=== PATIENT | female | born 1980 | race American Indian/Alaskan Native ===

== ENCOUNTER 2017-05-18 14:05 | Emergency (ER) | payer MEDICAID ==
[2017-05-18 14:09] VITALS: BP 139/93
== END 2017-05-18 16:00 | disposition left against medical advice (07) ==
LOC: ED 14:05
DX: M79.642 Pain in left hand (principal); Z53.21 Procedure and treatment not carried out due to patient leaving prior to being seen by health care provider

== ENCOUNTER 2017-05-22 20:12 | Emergency (ER) | payer MEDICAID ==
--- NOTE | 2017-05-22 21:31 | Emergency Department Report ---
ED General Adult HPI - General Chief complaint: Extremity Injury, Upper Stated complaint: LAC TO FINGERS FROM KNIFE Time Seen by Provider: 05/22/17 21:24 Source: patient Mode of arrival: Stretcher Limitations: No Limitations - History of Present Illness Initial comments: Patient is a 37-year-old female that presents to the ER with complaints of lacerations to her third, fourth, and fifth digit on her left hand. She states that she cut her hand/fingers 4 days ago and patient has been trying to take care of them at home. Patient states over the last 3 days they have becoming increasingly worse with pain, increasing warmth and redness, and even a smelly discharge. Patient states that she was able to feel her fingertips after she cut her hand but as of today patient has not been able to feel her fingertips at all. Patient complains of fever and chills. Patient denies nausea, vomiting , pain, shortness of breath, abdominal pain and headache. -: Gradual, days(s) (4 days) Location: upper extremity Radiation: other (pain radiating up hand) Severity scale (0 -10): 9 Quality: stabbing Consistency: constant Improves with: rest Worsens with: movement Associated Symptoms: fever/chills Treatments Prior to Arrival: none - Related Data Home Medications Medication Instructions Recorded Confirmed Last Taken Levothyroxine [Synthroid] 125 mcg PO QDAY 06/30/13 10/31/15 06/09/14 Duloxetine HCl [Cymbalta] 20 mg PO QDAY 10/31/15 10/31/15 Unknown Esomeprazole Magnesium [NexIUM] 40 mg PO QDAY 10/31/15 10/31/15 Unknown Levothyroxine [Synthroid] 88 mcg PO QAM 03/14/16 03/14/16 Unknown hydrOXYzine HCL [Atarax] 50 mg PO BID 03/14/16 03/14/16 Unknown Previous Rx's Medication Instructions Recorded Last Taken Type Citalopram Hydrobromide [celeXA] 20 mg PO DAILY #30 tablet 03/14/16 Unknown Rx Famotidine [Pepcid] 20 mg PO BID #30 tablet 03/14/16 Unknown Rx HYDROcodone/APAP 5-325 [[place] 1 each PO Q6HR PRN #12 tablet 03/14/16 Unknown Rx 5/325] Mirtazapine [Remeron] 45 mg PO QHS #30 tablet 03/14/16 Unknown Rx Promethazine [Phenergan TAB] 25 mg PO Q6HR PRN #30 tab 03/14/16 Unknown Rx Ibuprofen [Motrin 800 MG tab] 800 mg PO Q8HR PRN #30 tablet 03/20/16 Unknown Rx Citalopram [celeXA] 20 mg PO QDAY #30 tablet 05/11/16 Unknown Rx Famotidine [Pepcid] 20 mg PO BID #60 tablet 05/11/16 Unknown Rx HYDROcodone/APAP 5-325 [[place] 1 each PO Q6HR PRN #10 tablet 05/11/16 Unknown Rx 5-325 mg TAB] Mirtazapine [Remeron] 45 mg PO QHS #30 tablet 05/11/16 Unknown Rx Nitrofurantoin [place]/M-Cryst 100 mg PO Q12HR #10 capsule 05/11/16 Unknown Rx [Macrobid CAP] Promethazine [Phenergan TAB] 25 mg PO Q6HR PRN #30 tab 05/11/16 Unknown Rx Ibuprofen [Motrin 600 MG tab] 600 mg PO Q8H PRN #30 tablet 04/30/17 Unknown Rx predniSONE [Deltasone] 40 mg PO QDAY #5 tab 04/30/17 Unknown Rx Allergies Allergy/AdvReac Type Severity Reaction Status Date / Time No Known Allergies Allergy Verified 05/22/17 20:25 ED Review of Systems ROS: Stated complaint: LAC TO FINGERS FROM KNIFE Other details as noted in HPI Comment: All other systems reviewed and negative Constitutional: see HPI, chills Eyes: as per HPI ENT: as per HPI Respiratory: no symptoms reported Cardiovascular: as per HPI Endocrine: no symptoms reported Gastrointestinal: as per HPI Genitourinary: as per HPI Musculoskeletal: as per HPI Skin: as per HPI Neurological: as per HPI Psychiatric: as per HPI Hematological/Lymphatic: as per HPI ED Past Medical Hx - Past Medical History Previous Medical History?: Yes Hx Hypertension: No Hx Heart Attack/AMI: No Hx Congestive Heart Failure: No Hx Diabetes: No Hx Deep Vein Thrombosis: No Hx GERD: Yes Hx Liver Disease: No Hx Renal Disease: No Hx Sickle Cell Disease: No 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 ) Hx Psychiatric Treatment: Yes (Bipolar, PTSD) Hx Asthma: No Hx COPD: No Hx HIV: No Additional medical history: Hypothyroid - Surgical History Past Surgical History?: Yes Additional Surgical History: Perirectal abscess removed in 2004, tubal ligation 2013 - Social History Smoking Status: Current Every Day Smoker Substance Use Type: Alcohol - Medications Home Medications: Home Medications Medication Instructions Recorded Confirmed Last Taken Type Levothyroxine [Synthroid] 125 mcg PO QDAY 06/30/13 10/31/15 06/09/14 History Duloxetine HCl [Cymbalta] 20 mg PO QDAY 10/31/15 10/31/15 Unknown History Esomeprazole Magnesium [NexIUM] 40 mg PO QDAY 10/31/15 10/31/15 Unknown History Citalopram Hydrobromide [celeXA] 20 mg PO DAILY #30 tablet 03/14/16 Unknown Rx Famotidine [Pepcid] 20 mg PO BID #30 tablet 03/14/16 Unknown Rx HYDROcodone/APAP 5-325 [[place] 1 each PO Q6HR PRN #12 tablet 03/14/16 Unknown Rx 5/325] Levothyroxine [Synthroid] 88 mcg PO QAM 03/14/16 03/14/16 Unknown History Mirtazapine [Remeron] 45 mg PO QHS #30 tablet 03/14/16 Unknown Rx Promethazine [Phenergan TAB] 25 mg PO Q6HR PRN #30 tab 03/14/16 Unknown Rx hydrOXYzine HCL [Atarax] 50 mg PO BID 03/14/16 03/14/16 Unknown History Ibuprofen [Motrin 800 MG tab] 800 mg PO Q8HR PRN #30 tablet 03/20/16 Unknown Rx Citalopram [celeXA] 20 mg PO QDAY #30 tablet 05/11/16 Unknown Rx Famotidine [Pepcid] 20 mg PO BID #60 tablet 05/11/16 Unknown Rx HYDROcodone/APAP 5-325 [[place] 1 each PO Q6HR PRN #10 tablet 05/11/16 Unknown Rx 5-325 mg TAB] Mirtazapine [Remeron] 45 mg PO QHS #30 tablet 05/11/16 Unknown Rx Nitrofurantoin [place]/M-Cryst 100 mg PO Q12HR #10 capsule 05/11/16 Unknown Rx [Macrobid CAP] Promethazine [Phenergan TAB] 25 mg PO Q6HR PRN #30 tab 05/11/16 Unknown Rx Ibuprofen [Motrin 600 MG tab] 600 mg PO Q8H PRN #30 tablet 04/30/17 Unknown Rx predniSONE [Deltasone] 40 mg PO QDAY #5 tab 04/30/17 Unknown Rx ED Physical Exam - General Limitations: No Limitations General appearance: alert, in no apparent distress - Head Head exam: Present: atraumatic, normocephalic - Eye Eye exam: Present: normal appearance - ENT ENT exam: Present: mucous membranes moist - Neck Neck exam: Present: normal inspection - Respiratory Respiratory exam: Present: normal lung sounds bilaterally. Absent: respiratory distress - Cardiovascular Cardiovascular Exam: Present: regular rate, normal rhythm. Absent: systolic murmur, diastolic murmur, rubs, gallop - GI/Abdominal GI/Abdominal exam: Present: soft, normal bowel sounds - Extremities Exam Extremities exam: Present: normal inspection - Back Exam Back exam: Present: normal inspection - Neurological Exam Neurological exam: Present: alert, oriented X3 - Psychiatric Psychiatric exam: Present: normal affect, normal mood - Skin Skin exam: Present: warm, dry, other (left hand exam: Large lacerations noted to distal third, fourth and fifth digit. Flap noted on the third digit. All lacerations appear to be infected with large amount of purulent discharge. Decreased sensation noted to all 3 digits when compared to the other digits. Delayed cap refill noted. Digits extremely tender to touch over lacerations and proximal. ). Absent: rash ED Course Vital Signs 05/22/17 05/22/17 05/22/17 20:21 20:40 22:55 Temperature 98.1 F 99.2 F Pulse Rate 93 H 98 H Respiratory 18 16 16 Rate Blood Pressure 150/88 Blood Pressure 132/91 [Right] O2 Sat by Pulse 99 98 Oximetry ED Medical Decision Making - Lab Data Result diagrams: 05/22/17 21:43 05/22/17 21:43 - Radiology Data Radiology results: image reviewed (no fracture noted. ) - Medical Decision Making Patient 37-year-old female discussed case with Dr. gotti at [facility], hand specialist. Dr. Gotti accepted patient. Patient will be transferred via EMS. patient stable at time of transfer. - Differential Diagnosis Wound infection. Cellulitis. tendon infection. Deep wound infection. Critical care attestation.: If time is entered above; I have spent that time in minutes in the direct care of this critically ill patient, excluding procedure time. ED Disposition Clinical Impression: Infected finger laceration Disposition: [id number]/TX-[id number] ANOTHER TYPE HLTHCARE Is pt being admited?: No Does the pt Need Aspirin: No Condition: Serious
[2017-05-22 22:02] LABS: Basophils % (Auto) 0.2 % (0.0-1.8); Eosinophils % (Auto) 2.8 % (0.0-4.3); Hematocrit 31.2 % (30.3-42.9); Hemoglobin 10.4 gm/dl (10.1-14.3); Mean Corpuscular HGB Conc 33 % (30-34); Mean Corpuscular Hemoglobin 30 pg (28-32); Mean Corpuscular Volume 90 fl (79-97); Platelet Count 268 K/mm3 (140-440); Red Blood Count 3.45 M/mm3 (3.65-5.03); Red Cell Distribution Width 14.4 % (13.2-15.2); White Blood Count 6.1 K/mm3 (4.5-11.0)
[2017-05-22 22:12] LABS: Alanine Aminotransferase 9 units/L (7-56); Albumin 3.9 g/dL (3.9-5); Albumin/Globulin Ratio 1.1 %; Alkaline Phosphatase 73 units/L (35-129); Anion Gap 20 mmol/L; BUN/Creatinine Ratio 12; Bilirubin,Total < 0.20 mg/dL (0.1-1.2); Blood Urea Nitrogen 13 mg/dL (7-17); Carbon Dioxide 21 mmol/L (22-30); Chloride 99.4 mmol/L (98-107); Glucose 88 mg/dL (65-100); Sodium 136 mmol/L (137-145); Total Protein 7.3 g/dL (6.3-8.2)
[2017-05-22] MEDS ORDERED: CLEOCIN 300 MG/50 mL 300 MG/50 ML BAG IV ONE (22:44)
[2017-05-22] MEDS ORDERED: DILAUDID IV ONE (22:56)
[2017-05-22] MEDS ORDERED: ZOFRAN IV ONE (22:56)
[2017-05-22 23:35] VITALS: BP 139/96
--- NOTE | 2017-05-23 00:07 | XRay Report ---
FINAL REPORT PROCEDURE: XR HAND 3+V LT TECHNIQUE: Three views of the left hand are obtained HISTORY: lt hand pain/laceration 3rd 4th 5th digits COMPARISON: No prior studies are available for comparison. FINDINGS: Lacerations are seen of the 3rd, 4th, and 5th fingers. No radiopaque foreign body is seen. No fracture or dislocation is seen. IMPRESSION: Soft tissue lacerations are seen without evidence of bony abnormality.
== END 2017-05-23 00:15 | disposition other institution (70) ==
LOC: ED 20:12
DX: S61.213A Laceration without foreign body of left middle finger without damage to nail, initial encounter (principal); S61.215A Laceration without foreign body of left ring finger without damage to nail, initial encounter; S61.217A Laceration without foreign body of left little finger without damage to nail, initial encounter; L03.012 Cellulitis of left finger; K21.9 Gastro-esophageal reflux disease without esophagitis; R56.9 Unspecified convulsions; E03.9 Hypothyroidism, unspecified; F17.200 Nicotine dependence, unspecified, uncomplicated; W45.8XXA Other foreign body or object entering through skin, initial encounter; Y93.9 Activity, unspecified; Y92.89 Other specified places as the place of occurrence of the external cause; Y99.8 Other external cause status
CPT/HCPCS: 36415; 73130; 80053; 82140; 85025; 86140; 96365; 96375; 99285; J1170; J2405

== ENCOUNTER 2017-12-21 14:30 | Emergency (ER) | payer MEDICAID ==
[2017-12-21 14:59] VITALS: BP 128/94
[2017-12-21 16:11] LABS: Bacteria,Urine 2+ /HPF (Negative); Bilirubin,Urine NEG (Negative); Blood,Urine NEG (Negative); Color,Urine Yellow (Yellow); Mucus,Urine FEW /HPF; Protein,Urine <15 mg/dL mg/dL (Negative); Urobilinogen,Urine < 2.0 mg/dL (<2.0)
[2017-12-21 16:13] LABS: HCG Qualitative,Urine Negative (Negative)
--- NOTE | 2017-12-21 16:23 | Emergency Department Report ---
ED Chest Pain HPI - General Chief Complaint: Chest Pain Stated Complaint: C/P,DIZZINESS,NUMBNESS IN ARM Time Seen by Provider: 12/21/17 15:44 Source: patient Mode of arrival: Ambulatory Limitations: No Limitations - History of Present Illness Initial Comments: pt is 37 y/o aaf with hx hypthyoidism who presents for cp substernal radiating to left neck and left arm x 1 1/2 weeks worsen daily , increase cold sensitivity , n/v and sob, pt has take levothyroxone in 1 month usual dose 125mcg, cp is exacerbated by exertion and stress, pain is relieved by rest, pt states she no longer has pcp and could not get synthroid. MD Complaint: chest pain Onset/Timin -: week(s) Onset: during exertion Pain Location: substernal, left chest Pain Radiation: LUE Severity: moderate Severity scale (0 -10): 4 Quality: heaviness, sharp Consistency: intermittent Improves With: rest Worsens With: exertion, movement Context: other (stop taking levothyroxone ) re: nausea, vomting Aspirin use within the Past 7 Days: (0) No - Related Data On Oral Contraceptives: No Home Medications Medication Instructions Recorded Confirmed Last Taken Levothyroxine [Synthroid] 125 mcg PO QDAY 06/30/13 10/31/15 06/09/14 Duloxetine HCl [Cymbalta] 20 mg PO QDAY 10/31/15 10/31/15 Unknown Esomeprazole Magnesium [NexIUM] 40 mg PO QDAY 10/31/15 10/31/15 Unknown Levothyroxine [Synthroid] 88 mcg PO QAM 03/14/16 03/14/16 Unknown hydrOXYzine HCL [Atarax] 50 mg PO BID 03/14/16 03/14/16 Unknown Previous Rx's Medication Instructions Recorded Last Taken Type Citalopram Hydrobromide [celeXA] 20 mg PO DAILY #30 tablet 03/14/16 Unknown Rx Famotidine [Pepcid] 20 mg PO BID #30 tablet 03/14/16 Unknown Rx HYDROcodone/APAP 5-325 [[place] 1 each PO Q6HR PRN #12 tablet 03/14/16 Unknown Rx 5/325] Mirtazapine [Remeron] 45 mg PO QHS #30 tablet 03/14/16 Unknown Rx Promethazine [Phenergan TAB] 25 mg PO Q6HR PRN #30 tab 03/14/16 Unknown Rx Ibuprofen [Motrin 800 MG tab] 800 mg PO Q8HR PRN #30 tablet 03/20/16 Unknown Rx Citalopram [celeXA] 20 mg PO QDAY #30 tablet 05/11/16 Unknown Rx Famotidine [Pepcid] 20 mg PO BID #60 tablet 05/11/16 Unknown Rx HYDROcodone/APAP 5-325 [[place] 1 each PO Q6HR PRN #10 tablet 05/11/16 Unknown Rx 5-325 mg TAB] Mirtazapine [Remeron] 45 mg PO QHS #30 tablet 05/11/16 Unknown Rx Nitrofurantoin [place]/M-Cryst 100 mg PO Q12HR #10 capsule 05/11/16 Unknown Rx [Macrobid CAP] Promethazine [Phenergan TAB] 25 mg PO Q6HR PRN #30 tab 05/11/16 Unknown Rx Ibuprofen [Motrin 600 MG tab] 600 mg PO Q8H PRN #30 tablet 04/30/17 Unknown Rx predniSONE [Deltasone] 40 mg PO QDAY #5 tab 04/30/17 Unknown Rx Levothyroxine Sodium [Synthroid] 125 mcg PO DAILY #30 tablet 12/21/17 Unknown Rx Nitrofurantoin [place]/M-Cryst 100 mg PO BID #20 capsule 12/21/17 Unknown Rx [Macrobid 100 mg Capsule] Allergies Allergy/AdvReac Type Severity Reaction Status Date / Time No Known Allergies Allergy Verified 05/22/17 20:25 Heart Score - HEART Score History: Slightly suspicious EKG: Non-specific Age: < 45 Risk factors: 1-2 risk factors Troponin: < normal limit HEART Score: 2 ED Review of Systems ROS: Stated complaint: C/P,DIZZINESS,NUMBNESS IN ARM Other details as noted in HPI Constitutional: malaise. denies: chills, fever Eyes: denies: eye pain, eye discharge, vision change ENT: as per HPI Respiratory: shortness of breath Cardiovascular: chest pain Endocrine: no symptoms reported, intolerance to cold Gastrointestinal: nausea, vomiting Genitourinary: denies: urgency, dysuria, discharge Musculoskeletal: denies: back pain, joint swelling, arthralgia Skin: denies: rash, lesions Neurological: as per HPI Psychiatric: denies: anxiety, depression Hematological/Lymphatic: denies: easy bleeding, easy bruising ED Past Medical Hx - Past Medical History Hx Hypertension: No Hx Heart Attack/AMI: No Hx Congestive Heart Failure: No Hx Diabetes: No Hx Deep Vein Thrombosis: No Hx GERD: Yes Hx Liver Disease: No Hx Renal Disease: No Hx Sickle Cell Disease: No 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 ) Hx Psychiatric Treatment: Yes (Bipolar, PTSD) Hx Asthma: No Hx COPD: No Hx HIV: No Additional medical history: Hypothyroid - Surgical History Additional Surgical History: Perirectal abscess removed in 2004, tubal ligation 2013 - Social History Smoking Status: Never Smoker Substance Use Type: None - Medications Home Medications: Home Medications Medication Instructions Recorded Confirmed Last Taken Type Levothyroxine [Synthroid] 125 mcg PO QDAY 06/30/13 10/31/15 06/09/14 History Duloxetine HCl [Cymbalta] 20 mg PO QDAY 10/31/15 10/31/15 Unknown History Esomeprazole Magnesium [NexIUM] 40 mg PO QDAY 10/31/15 10/31/15 Unknown History Citalopram Hydrobromide [celeXA] 20 mg PO DAILY #30 tablet 03/14/16 Unknown Rx Famotidine [Pepcid] 20 mg PO BID #30 tablet 03/14/16 Unknown Rx HYDROcodone/APAP 5-325 [[place] 1 each PO Q6HR PRN #12 tablet 03/14/16 Unknown Rx 5/325] Levothyroxine [Synthroid] 88 mcg PO QAM 03/14/16 03/14/16 Unknown History Mirtazapine [Remeron] 45 mg PO QHS #30 tablet 03/14/16 Unknown Rx Promethazine [Phenergan TAB] 25 mg PO Q6HR PRN #30 tab 03/14/16 Unknown Rx hydrOXYzine HCL [Atarax] 50 mg PO BID 03/14/16 03/14/16 Unknown History Ibuprofen [Motrin 800 MG tab] 800 mg PO Q8HR PRN #30 tablet 03/20/16 Unknown Rx Citalopram [celeXA] 20 mg PO QDAY #30 tablet 05/11/16 Unknown Rx Famotidine [Pepcid] 20 mg PO BID #60 tablet 05/11/16 Unknown Rx HYDROcodone/APAP 5-325 [[place] 1 each PO Q6HR PRN #10 tablet 05/11/16 Unknown Rx 5-325 mg TAB] Mirtazapine [Remeron] 45 mg PO QHS #30 tablet 05/11/16 Unknown Rx Nitrofurantoin [place]/M-[place]ryst 100 mg PO Q12HR #10 capsule 05/11/16 Unknown Rx [Macrobid CAP] Promethazine [Phenergan TAB] 25 mg PO Q6HR PRN #30 tab 05/11/16 Unknown Rx Ibuprofen [Motrin 600 MG tab] 600 mg PO Q8H PRN #30 tablet 04/30/17 Unknown Rx predniSONE [Deltasone] 40 mg PO QDAY #5 tab 04/30/17 Unknown Rx Levothyroxine Sodium [Synthroid] 125 mcg PO DAILY #30 tablet 12/21/17 Unknown Rx Nitrofurantoin [place]/M-Cryst 100 mg PO BID #20 capsule 12/21/17 Unknown Rx [Macrobid 100 mg Capsule] ED Physical Exam - General Limitations: No Limitations General appearance: alert, in no apparent distress - Head Head exam: Present: atraumatic, normocephalic - Eye Eye exam: Present: normal appearance, PERRL, EOMI Pupils: Present: normal accommodation - ENT ENT exam: Present: mucous membranes moist - Neck Neck exam: Present: normal inspection, full ROM. Absent: tenderness, lymphadenopathy, thyromegaly - Respiratory Respiratory exam: Present: normal lung sounds bilaterally, chest wall tenderness (left lateral chest wall ). Absent: respiratory distress, wheezes, stridor - Cardiovascular Cardiovascular Exam: Present: regular rate, normal rhythm. Absent: systolic murmur, diastolic murmur, rubs, gallop - GI/Abdominal GI/Abdominal exam: Present: soft, normal bowel sounds. Absent: distended, tenderness, guarding, rebound, rigid, mass, bruit, pulsatile mass, hernia - Rectal Rectal exam: Present: deferred - Extremities Exam Extremities exam: Present: normal inspection, full ROM, normal capillary refill. Absent: tenderness, pedal edema, joint swelling, calf tenderness - Expanded Upper Extremity Exam Left Shoulder Exam: Present: normal inspection, full ROM Upper Arm exam: Present: normal inspection, full ROM Elbow exam: Present: normal inspection, full ROM Forearm Wrist exam: Present: normal inspection, full ROM Hand Wrist exam: Present: normal inspection, full ROM Neuro motor exam: Present: wrist extension intact, thumb opposition intact, thumb IP flexion intact, thumb adduction intact, fingers 2-5 abduction intact Neurosensory exam: Present: 2-point discrimination, radial nerve intact, ulnar nerve intact, median nerve intact Vascular: Present: normal capillary refill, radial pulse, brachial pulse, ulnar pulse. Absent: vascular compromise, Pallo, pulse deficit radial art, pulse deficit ulnar art, pulse deficit brachial art - Back Exam Back exam: Present: normal inspection - Neurological Exam Neurological exam: Present: alert, oriented X3 - Psychiatric Psychiatric exam: Present: normal affect, normal mood - Skin Skin exam: Present: warm, dry, intact, normal color. Absent: rash ED Course Vital Signs 12/21/17 14:47 Temperature 99.1 F Pulse Rate 110 H Respiratory 18 Rate Blood Pressure 128/94 O2 Sat by Pulse 100 Oximetry BRADY score - Brady Score Age > 65: (0) No Aspirin use within the Past 7 Days: (0) No 3 or more CAD Risk Factors: (0) No 2 or more Angina events in past 24 hrs: (0) No Known CAD with more than 50% Stenosis: (0) No Elevated Cardiac Markers: (0) No ST Deviation Greater than 0.5mm: (0) No BRADY Score: 0 ED Medical Decision Making - Lab Data Result diagrams: 12/21/17 16:23 12/21/17 16:23 Laboratory Tests 12/21/17 12/21/17 12/21/17 15:46 16:23 16:23 WBC 5.6 RBC 3.95 Hgb 11.9 Hct 35.8 MCV 91 MCH 30 MCHC 33 RDW 16.7 H Plt Count 150 Lymph % (Auto) 48.3 H [place] % (Auto) 5.2 Eos % (Auto) 1.3 Baso % (Auto) 0.5 Lymph # 2.7 [place] # 0.3 Eos # 0.1 Baso # 0.0 Add Manual Diff Complete Seg Neutrophils % 44.7 Seg Neutrophils # 2.5 Sodium 136 L Potassium 3.9 Chloride 98.6 Carbon Dioxide 21 L Anion Gap 20 BUN 4 L Creatinine 1.3 H Estimated GFR 56 BUN/Creatinine Ratio 3 Glucose 72 Calcium 9.7 Total Bilirubin 0.50 AST 37 ALT 13 Alkaline Phosphatase 40 Troponin T < 0.010 Total Protein 7.5 Albumin 4.2 Albumin/Globulin Ratio 1.3 Urine Color Yellow Urine Turbidity Clear Urine pH 5.0 Ur Specific [place] 1.008 Urine Protein <15 mg/dl Urine Glucose (UA) Neg Urine Ketones Neg Urine Blood Neg Urine Nitrite Neg Urine Bilirubin Neg Urine Urobilinogen < 2.0 Ur Leukocyte Esterase Lg Urine WBC (Auto) 26.0 H Urine RBC (Auto) 6.0 U Epithel Cells (Auto) 4.0 Urine Bacteria (Auto) 2+ Urine Mucus Few Urine HCG, Qual Negative - Radiology Data Radiology results: report reviewed, image reviewed no opacities no infiltrates - Medical Decision Making Chest x-ray normal troponin and normal heart score 0 BRADY score 0 no risk no symptoms or thyroid storm no elevated temperature and positive for nitrates white blood cells TSH pending plan restart Synthroid 125 mics by mouth daily treated for UTI Macrobid by mouth twice a day for 10 follow up with [facility] for PCP affiliation return to ED if symptoms worsen discussing the patient patient verbalized understanding discharge plan patient DC to home in stable condition at this time. Critical care attestation.: If time is entered above; I have spent that time in minutes in the direct care of this critically ill patient, excluding procedure time. ED Disposition Clinical Impression: Medication refill UTI (urinary tract infection) Qualifiers: Urinary tract infection type: acute cystitis Hematuria presence: without hematuria Qualified Code(s): N30.00 - Acute cystitis without hematuria Hypothyroid Qualifiers: Hypothyroidism type: acquired Qualified Code(s): E03.9 - Hypothyroidism, unspecified Disposition: DC-01 TO HOME OR SELFCARE Is pt being admited?: No Does the pt Need Aspirin: No Condition: Good Instructions: Urinary Tract Infection in Women (ED), Hypothyroidism (ED) Prescriptions: Levothyroxine Sodium [Synthroid] 125 mcg PO DAILY #30 tablet Nitrofurantoin Monohyd/M-Cryst [Macrobid 100 mg Capsule] 100 mg PO BID #20 capsule Referrals: PRIMARY CARE, [Primary Care Provider] - 3-5 Days Forms: Work/School Release Form(ED) Time of Disposition: 18:26
[2017-12-21 17:06] LABS: Hematocrit 35.8 % (30.3-42.9); Hemoglobin 11.9 gm/dl (10.1-14.3); Mean Corpuscular HGB Conc 33 % (30-34); Mean Corpuscular Hemoglobin 30 pg (28-32); Mean Corpuscular Volume 91 fl (79-97); Red Blood Count 3.95 M/mm3 (3.65-5.03); Red Cell Distribution Width 16.7 % (13.2-15.2)
--- NOTE | 2017-12-21 17:06 | XRay Report ---
FINAL REPORT PROCEDURE: XR CHEST ROUTINE 2V TECHNIQUE: PA and lateral chest radiographs were obtained. CPT 84356 HISTORY: chest pain COMPARISON: No prior studies are available for comparison. FINDINGS: Heart: Normal. Mediastinum/Vessels: Normal. Lungs/Pleural space: No infiltrate, effusion, or pneumothorax. Bony thorax: No acute osseous abnormality. Other: IMPRESSION: No radiographic evidence of acute abnormality.
[2017-12-21 17:07] LABS: Platelet Count 150 K/mm3 (140-440)
[2017-12-21 17:08] LABS: Alanine Aminotransferase 13 units/L (7-56); Albumin 4.2 g/dL (3.9-5); BUN/Creatinine Ratio 3; Blood Urea Nitrogen 4 mg/dL (7-17); Calcium 9.7 mg/dL (8.4-10.2); Hemolysis Index 29
[2017-12-21 17:09] LABS: Basophils % (Auto) 0.5 % (0.0-1.8); Eosinophils % (Auto) 1.3 % (0.0-4.3); Lymphocytes % (Auto) 48.3 % (13.4-35.0); Monocytes % (Auto) 5.2 % (0.0-7.3)
[2017-12-21 17:10] LABS: Eosinophils # (Auto) 0.1 K/mm3 (0.0-0.4); Lymphocytes # (Auto) 2.7 K/mm3 (1.2-5.4); Monocytes # (Auto) 0.3 K/mm3 (0.0-0.8)
== END 2017-12-21 18:34 | disposition home or self-care (01) ==
LOC: ED 14:30
DX: N30.00 Acute cystitis without hematuria (principal); E03.9 Hypothyroidism, unspecified; Z76.0 Encounter for issue of repeat prescription; K21.9 Gastro-esophageal reflux disease without esophagitis; F31.9 Bipolar disorder, unspecified; Z98.51 Tubal ligation status
CPT/HCPCS: 36415; 71046; 80053; 81001; 81025; 84443; 84484; 85025; 93005; 93010